=== PATIENT | female | born 1970 | race Caucasian/White ===

== ENCOUNTER 2017-01-13 10:31 | Emergency (ER) | payer BC ==
[~2017-01-13] VITALS: Ht 170.2 cm; Wt 56.0 kg
[2017-01-13] MEDS ORDERED: SODIUM CHLORIDE 0.9% 1,000ML IVBOLUS ONE (11:00)
[2017-01-13] MEDS ORDERED: SODIUM CHLORIDE FLUSH 10ML SYR IVF ONE (11:00)
[2017-01-13] MEDS ORDERED: ACETAMINOPHEN 500 MG TABLET PO ONE (11:00)
[2017-01-13] MEDS ORDERED: KETOROLAC 30 MG/1 ML IVPush ONE (11:00)
[2017-01-13] MEDS ORDERED: ASPIRIN 81 MG TABLET CHEW PO ONE (11:00)
[2017-01-13] MEDS ORDERED: DIPHENHYDRAMINE 50 MG/ML, 1ML IVPush ONE (11:00)
[2017-01-13 11:25] LABS: HEMATOCRIT 40.1 % (34.6-47.8); HEMOGLOBIN 13.3 g/dL (11.7-16.4)
[2017-01-13 11:31] LABS: BLOOD UREA NITROGEN 13 mg/dL (7-18)
[2017-01-13] MEDS ORDERED: ASPIRIN 81 MG TABLET CHEW ONE (11:32)
[2017-01-13] MEDS ORDERED: ACETAMINOPHEN 500 MG TABLET ONE (11:32)
[2017-01-13] MEDS ORDERED: DIPHENHYDRAMINE 50 MG/ML, 1ML ONE (11:32)
[2017-01-13] MEDS ORDERED: KETOROLAC 30 MG/1 ML ONE (11:32)
[2017-01-13 11:36] LABS: IS PT STATUS REG ER OR PRE ER? YES
[2017-01-13 13:19] VITALS: BP 96/60
== END 2017-01-13 13:33 | disposition home or self-care (01) ==
LOC: ED 13:27
DX: R42 Dizziness and giddiness (principal); G44.52 New daily persistent headache (NDPH); R00.1 Bradycardia, unspecified
CPT/HCPCS: 36415; 70450; 71020; 80048; 82040; 84484; 84703; 85025; 93005; 96361; 96374; 99285; J1885; J7030

== ENCOUNTER 2019-06-07 11:30 | Emergency (ER) | payer BC ==
[~2019-06-07] VITALS: Ht 167.6 cm; Wt 58.4 kg
--- NOTE | 2019-06-07 11:59 | NUR ---
pt to ed for joshi/migraine starting thursday. pt endorses nausea, but denies vomiting and is able to tolerate po food and fluids. pt connected to monitors. vss. no needs expressed. call light within reach. orders recieved.
[2019-06-07] MEDS ORDERED: KETOROLAC 30 MG/1 ML IM ONE (12:00)
[2019-06-07] MEDS ORDERED: ACETAMINOPHEN 325 MG TABLET PO ONE (12:00)
[2019-06-07] MEDS ORDERED: ACETAMINOPHEN 500 MG TABLET ONE ×2 (12:04→12:07)
[2019-06-07] MEDS ORDERED: KETOROLAC 60 MG/2 ML ONE ×2 (12:04→12:06)
[2019-06-07 12:14] VITALS: BP 123/74
== END 2019-06-07 12:17 | disposition home or self-care (01) ==
LOC: ED 12:05
DX: G44.219 Episodic tension-type headache, not intractable (principal); Z87.891 Personal history of nicotine dependence
CPT/HCPCS: 96372; 99283; J1885

== ENCOUNTER → 2020-04-23 | Outpatient (CLI) | payer BC | END | disposition home or self-care (01) | LOC: CFH 12:44 | PROVIDERS: ATTEND Internal Medicine | DX: R92.1 Mammographic calcification found on diagnostic imaging of breast (principal); N64.9 Disorder of breast, unspecified | CPT/HCPCS: 77065 ==

== ENCOUNTER → 2020-05-09 | Outpatient (CLI) | payer BC ==
[~2020-05-09] MED LIST: LIDOCAINE 1%, 20ML ONE; LIDOCAINE 1%-EPI 1:100K, 20ML ONE; SODIUM BICARBONATE 4.2%, 5ML ONE
== END | disposition home or self-care (01) ==
LOC: CFH 08:02
PROVIDERS: ATTEND Internal Medicine
DX: R92.0 Mammographic microcalcification found on diagnostic imaging of breast (principal)
CPT/HCPCS: 19081; 77065; 88305; J3490

== ENCOUNTER 2020-05-30 07:59 | Outpatient (CLI) | payer BC ==
[2020-05-30] MEDS ORDERED: LIDOCAINE 1%, 20ML ONE (10:06)
[2020-05-30] MEDS ORDERED: LIDOCAINE 1%-EPI 1:100K, 20ML ONE (10:06)
[2020-05-30] MEDS ORDERED: SODIUM BICARBONATE 4.2%, 5ML ONE (10:06)
== END 2020-05-30 23:59 | disposition home or self-care (01) ==
LOC: CFH 07:59
PROVIDERS: ATTEND Internal Medicine
DX: R92.0 Mammographic microcalcification found on diagnostic imaging of breast (principal); N60.21 Fibroadenosis of right breast
CPT/HCPCS: 19081; 77065; 88305; 88341; 88342; J3490